=== PATIENT | male | born 1965 | race Two or more races ===

== ENCOUNTER 2025-07-01 10:52 | Emergency (ER) | payer BC ==
[2025-07-01] MEDS: Pantoprazole 80 MG in Sodium Chloride 0.9% 10 ML IVPUSH ONE (11:23)
[2025-07-01] MEDS: Iopamidol 755 MG/ML 500 ML Multipack Bottle IVPUSH STA (11:50)
[2025-07-01 11:53] LABS: BASOPHILS ABSOLUTE AUTO 0.04 K/uL (0.00-0.20); BASOPHILS PERCENT AUTO 0.8 % (0.0-1.0); EOSINOPHILS ABSOLUTE AUTO 0.10 K/uL (0.00-0.45); EOSINOPHILS PERCENT AUTO 1.9 % (0.0-6.0); IMMATURE GRAN ABSOLUTE AUTO 0.03 K/uL (0.00-0.05); IMMATURE GRAN PERCENT AUTO 0.6 % (0.0-0.4); LYMPHOCYTES ABSOLUTE AUTO 0.88 K/uL (1.00-4.80); LYMPHOCYTES PERCENT AUTO 16.8 % (24.0-44.0); MEAN PLATELET VOLUME 9.2 fL (9.4-12.4); MONOCYTES ABSOLUTE AUTO 0.54 K/uL (0.00-0.80); MONOCYTES PERCENT AUTO 10.3 % (0.0-8.0); NEUTROPHILS ABSOLUTE AUTO 3.66 K/uL (1.80-7.70); NEUTROPHILS PERCENT AUTO 69.6 % (41.0-71.0); NRBC ABSOLUTE 0.00 K/uL (0.00-0.02); NRBC PERCENT 0.0 /100WBC (0.0-0.2); PLATELET COUNT,PLT 199 K/uL (150-400); RED BLOOD CELL COUNT 5.33 M/uL (4.52-5.90); WHITE BLOOD CELL COUNT,WBC 5.25 K/uL (3.9-11.3)
[2025-07-01 11:59] LABS: APPEARANCE,URINE SLT CLOUDY; GLUCOSE,URINE NEGATIVE (NEGATIVE); OCCULT BLOOD,URINE NEGATIVE (NEGATIVE)
[2025-07-01 12:06] LABS: INR 1.08 (0.86-1.11)
[2025-07-01 12:10] LABS: AMPHETAMINES SCREEN, URINE NEGATIVE (CUTOFF=500); BUPRENORPHINE SCREEN,URINE NEGATIVE (CUTOFF=10); METHADONE SCREEN, URINE NEGATIVE (CUTOFF=200); METHAMPHETAMINES SCREEN, URINE NEGATIVE (CUTOFF=500); OXYCODONE SCREEN,URINE NEGATIVE (CUT0FF=100); PCP SCREEN,URINE NEGATIVE (CUTOFF=25); THC SCREEN,URINE 20 NG/ML PRESUMPTIVE POSITIVE (CUTOFF=50)
[2025-07-01 12:16] LABS: EPITHELIAL CELLS,URINE OCCASIONAL (NONE-FEW)
[2025-07-01 12:42] LABS: A/G RATIO 1.1 (0.9-1.6); ALANINE AMINOTRANSFERASE,ALT 22 IU/L (14-63); ASPARTATE AMNIOTRANSFERASE,AST 18 IU/L (15-37); BILIRUBIN TOTAL 1.7 mg/dL (0.2-1.0); BLOOD UREA NITROGEN,BUN 14 mg/dL (7.0-18.0); CARBON DIOXIDE,CO2 23.5 mmol/L (21.0-32.0); CHLORIDE,CL 102 mmol/L (98-107); CREATININE 1.0 mg/dL (0.8-1.3); EST CRCL DRUG DOSING (CG) 74.36 mL/min; ETHANOL BLOOD MEDICAL <3 mg/dL; GLUCOSE RANDOM 138 mg/dL (74-106); POTASSIUM,K 3.4 mmol/L (3.5-5.1); PRO B-TYPE NATRIUR PEPT,BNPPRO 114 pg/mL (0-125); PROTEIN TOTAL,TP 7.7 g/dL (6.4-8.2); SODIUM,NA 139 mmol/L (136-148)
[2025-07-01 12:45] LABS: ESTIMATED GFR 87 mL/min (>60)
[2025-07-01] MEDS: Sodium Chloride 0.9% 10 ML Syringe FLUSH PRN (14:24)
[2025-07-01] MEDS: diphenhydrAMINE 50 MG/ML SDV IVPUSH ONE (14:24)
[2025-07-01] MEDS: Prochlorperazine 10 MG/2 ML SDV IVPUSH ONE (14:24)
[2025-07-01] MEDS: Sodium Chloride 0.9% 2.5 ML Syringe FLUSH PRN (14:25)
== END 2025-07-01 15:04 | disposition home or self-care (01) ==
LOC: MW.ED 10:52
DX: R07.9 Chest pain, unspecified (principal); H81.399 Other peripheral vertigo, unspecified ear; I10 Essential (primary) hypertension; K29.21 Alcoholic gastritis with bleeding; K92.2 Gastrointestinal hemorrhage, unspecified; R51.9 Headache, unspecified; F10.21 Alcohol dependence, in remission; F15.90 Other stimulant use, unspecified, uncomplicated; R19.5 Other fecal abnormalities; Z86.19 Personal history of other infectious and parasitic diseases; Z79.899 Other long term (current) drug therapy; Z91.148 Patient's other noncompliance with medication regimen for other reason
CPT/HCPCS: 36415; 70450; 70496; 70498; 70551; 71045; 80053; 80143; 80179; 80305; 80307; 81001; 83690; 83735; 83880; 84484; 85014; 85018; 85025; 85610; 93005; 96361; 96374; 96375; 99285; A9270; J0780; J1200; J2470; J7030; Q9967; 93010; 99284